=== PATIENT | female | born 1955 | race Caucasian/White ===

== ENCOUNTER 2017-01-25 15:01 | Emergency (ER) | payer MEDICAID ==
[~2017-01-25] VITALS: Ht 162.6 cm; Wt 83.5 kg
--- NOTE | 2017-01-25 15:01 | NUR ---
C/O COUGH WITH CONGESTION X 10 DAYS, ALSO C/O FEVER. NAD NOTED. PT AAO X4, VSS. NAD NOTED. PENDING MD MARTIN.
[2017-01-25] MEDS ORDERED: IBUPROFEN 400 MG TABLET ONE (15:27)
[2017-01-25] MEDS ORDERED: IBUPROFEN 400 MG TABLET PO ONE (15:30)
--- NOTE | 2017-01-25 15:30 | NUR ---
LAB AT BEDSIDE FOR EVAL.
[2017-01-25 15:34] LABS: BASOPHILS % (AUTO) 0.2 % (0.0-2.0); EOSINOPHILS # (AUTO) 0.1 /CMM (0.0-0.7); EOSINOPHILS % (AUTO) 0.8 % (0.0-6.0); HEMATOCRIT 34 % (33-45); HEMOGLOBIN 11.5 g/dL (11.5-14.8); LYMPHOCYTES # (AUTO) 1.2 /CMM (0.8-4.8); LYMPHOCYTES % (AUTO) 13.9 % (20.0-44.0); MEAN CORPUSCULAR HEMOGLOBIN 28 PG (26.0-33.0); MEAN CORPUSCULAR HGB CONC 33 g/dl (31.0-36.0); MEAN CORPUSCULAR VOLUME 83 fL (82-100); MONOCYTES # (AUTO) 0.8 /CMM (0.1-1.30); MONOCYTES % (AUTO) 9.9 % (2.0-12.0); NEUTROPHILS # (AUTO) 6.3 /CMM (1.8-8.9); NEUTROPHILS % (AUTO) 75.2 % (43.0-81.0); PLATELET COUNT (AUTO) 290 /CMM (150-450); RDW COEFFICIENT OF VARIATION 11.9 (11.5-15.0); RED BLOOD CELL COUNT(AUTO) 4.16 MIL/uL (4.0-5.2); WHITE BLOOD COUNT (AUTO) 8.4 K/uL (4.3-11.0)
[2017-01-25 15:48] LABS: CREATININE 0.9 mg/dL (0.6-1.3)
[2017-01-25 16:33] VITALS: BP 128/74
== END 2017-01-25 17:27 | disposition home or self-care (01) ==
LOC: ER 15:06
DX: J22 Unspecified acute lower respiratory infection (principal); I10 Essential (primary) hypertension; F17.200 Nicotine dependence, unspecified, uncomplicated
CPT/HCPCS: 36415; 71010; 80048; 85025; 93005; 99284; 99406; A4606; Z7610

== ENCOUNTER 2020-08-08 17:57 | Emergency (ER) | payer BC, MEDICAID ==
[~2020-08-08] VITALS: Ht 162.6 cm; Wt 89.4 kg
--- NOTE | 2020-08-08 18:10 | NUR ---
BIBS FROM HOME. C/O DIZZINESS, WEAKNESS, CHEST PAIN AND ABDOMINAL PAIN X 2 DAYS. A/O X4. STABLE ON ROOM AIR. AMBULATORY. PAIN SCALE OF 7/1O. VS STABLE.
--- NOTE | 2020-08-08 18:15 | NUR ---
URINE SPECIMEN SENT TO LAB
[2020-08-08] MEDS ORDERED: FAMOTIDINE/PF INJ 20 MG/2 ML VIAL IV ONE ×2 (18:41→19:00)
[2020-08-08 19:00] LABS: BILIRUBIN,URINE MODERATE (NEGATIVE); COLOR,URINE YELLOW (YELLOW); LEUKOCYTE ESTERASE ,URINE Negative (NEGATIVE); NITRITE, URINE Negative (NEGATIVE); PROTEIN,URINE Trace mg/dl (NEGATIVE); UGLUCOSE Negative (NEGATIVE); UROBILINOGEN,URINE 0.2 EU/dL (0.2)
[2020-08-08] MEDS ORDERED: IV NS 0.9% 1,000 ML BAG IV ONE (19:00)
[2020-08-08 19:02] LABS: BASOPHILS % (AUTO) 0.7 % (0.0-2.0); EOSINOPHILS % (AUTO) 0.3 % (0.0-6.0); HEMATOCRIT 40 % (33-45); HEMOGLOBIN 13.2 g/dL (11.5-14.8); LYMPHOCYTES # (AUTO) 1.7 /CMM (0.8-4.8); LYMPHOCYTES % (AUTO) 22.9 % (20.0-44.0); MEAN CORPUSCULAR HGB CONC 33 g/dl (31.0-36.0); MEAN CORPUSCULAR VOLUME 86 fL (82-100); MONOCYTES # (AUTO) 0.4 /CMM (0.1-1.30); MONOCYTES % (AUTO) 5.8 % (2.0-12.0); NEUTROPHILS # (AUTO) 5.2 /CMM (1.8-8.9); NEUTROPHILS % (AUTO) 70.3 % (43.0-81.0); PLATELET COUNT (AUTO) 258 /CMM (150-450); RED BLOOD CELL COUNT(AUTO) 4.67 MIL/uL (4.0-5.2); WHITE BLOOD COUNT (AUTO) 7.4 K/uL (4.3-11.0)
[2020-08-08 19:04] LABS: BACTERIA,URINE Rare /HPF (None Seen); RBC,URINE NONE SEEN /HPF (0-2); SQUAMOUS EPITHELIAL CELL,UR Few /HPF (None Seen); WBC,URINE NONE SEEN /HPF (0-3)
[2020-08-08 19:12] LABS: CALCIUM, SERUM 9.5 mg/dL (8.5-10.1); CARBON DIOXIDE 28 mmol/L (21-32); CHLORIDE 102 mmol/L (98-107); CREATININE 0.8 mg/dL (0.6-1.3); GLUCOSE 96 mg/dL (74-106); POTASSIUM 4.1 mmol/L (3.5-5.1); SODIUM SERUM 137 mmol/L (136-145); UREA NITROGEN, BLOOD 15 mg/dL (7-18)
[2020-08-08 19:18] LABS: ALANINE AMINOTRANSFERASE 19 U/L (12-78); ALBUMIN 3.4 g/dL (3.4-5.0); ALKALINE PHOSPHATASE 93 U/L (46-116); ASPARTATE AMINOTRANSFERASE 20 U/L (15-37); BILIRUBIN,DIRECT 0.1 mg/dL (0.0-0.2); BILIRUBIN,TOTAL 0.4 mg/dL (0.2-1.0); LIPASE 42 U/L (73-393); TOTAL PROTEIN, SERUM 7.6 g/dL (6.4-8.2)
[2020-08-08] MEDS ORDERED: IOHEXOL-300 100 ML VIAL IV ONE (19:30)
[2020-08-08] MEDS ORDERED: IV NS 0.9% 250 ML IV ONE (19:31)
[2020-08-08] MEDS ORDERED: CT SWABBABLE VALVE TRANS SET 1 EA INFUS.SET MC ONE (19:31)
--- NOTE | 2020-08-08 19:37 | NUR ---
PATIENT IS TAKEN TO CT VIA GURNEY.
--- NOTE | 2020-08-08 20:26 | NUR ---
DR. ESPITIA ON THE PHONE WITH DR. BRAYAN DIAZ
--- NOTE | 2020-08-08 20:26 | NUR ---
DR. ESPITIA SPEAKING WITH DR. SCHMIDT (GI TEST FIXTURE ASSEMBLER)
--- NOTE | 2020-08-08 20:34 | NUR ---
DR. ESPITIA SPEAKING WITH DR. ESPAÑA (SURGERY CLIN NURSE SPEC)
[2020-08-08] MEDS ORDERED: ONDANSETRON HCL/PF 4 MG/2 ML VIAL ONE (20:47)
[2020-08-08] MEDS ORDERED: MORPHINE SULFATE INJ 2 MG/ML DISP.SYRIN ONE (20:47)
--- NOTE | 2020-08-08 20:57 | NUR ---
ADMISSION PACKET PROVIDED TO ADMITTING DEPT
[2020-08-08] MEDS ORDERED: MORPHINE SULFATE INJ 2 MG/ML DISP.SYRIN IV ONE (21:00)
[2020-08-08] MEDS ORDERED: ONDANSETRON HCL/PF 4 MG/2 ML VIAL IV ONE (21:00)
--- NOTE | 2020-08-08 21:26 | NUR ---
SANCHEZ SUNSHINE SENT TO LAB.
--- NOTE | 2020-08-08 21:26 | NUR ---
PATIENT AMBULATED TO THE RESTROOM WITH A STEADY GAIT.
--- NOTE | 2020-08-08 22:03 | NUR ---
DR SALGUERO ON THE PHONE W/ DR CHATTERJEE
--- NOTE | 2020-08-08 22:08 | NUR ---
CALLED [facility] FOR [facility] BED
[2020-08-08] MEDS ORDERED: AMLO2.5T4 PO (22:12)
[2020-08-08] MEDS ORDERED: ASPI-1169 PO (22:12)
[2020-08-08] MEDS ORDERED: HYDR12.55 PO (22:12)
--- NOTE | 2020-08-08 23:18 | NUR ---
SPOKE WITH TRANSITION RN CHRIS AND PROVIDED CLINICAL INFORMATION FOR HIGHER LEVEL OF CARE TRANSFER
[2020-08-09] MEDS ORDERED: IV NS 0.9% 1,000 ML IV ONE (00:30)
--- NOTE | 2020-08-09 01:53 | NUR ---
SPOKE WITH OUTSIDE SALES ENGINEER CHRIS, PT WILL BE TRANSFERRED TO [facility] FOR HIGHER LEVEL OF CARE. ACCEPTED BY DR. ANN. PER CHRIS, BED AND TRANSPORTATION INFORMATION STILL PENDING
--- NOTE | 2020-08-09 01:54 | NUR ---
DR. BERG ON THE PHONE WITH DR. ANN
--- NOTE | 2020-08-09 02:05 | NUR ---
Patient does not wish to proceed with medical care recommended by Dr. Esparza. Patient given information related to possible complications, up to and including , which could occur as a result of leaving the hospital at this time. Patient verbalizes understanding of risks involved due to leaving against medical advice. Patient has signed AMA form.
--- NOTE | 2020-08-09 02:11 | NUR ---
IV removed. Catheter intact and site benign. Pressure and 4x4 applied to site. No bleeding noted.
--- NOTE | 2020-08-09 02:12 | NUR ---
Patient is picked up by daughter.
[2020-08-09 02:22] VITALS: BP 133/78
== END 2020-08-09 02:22 | disposition left against medical advice (07) ==
LOC: ER 18:01
DX: R10.13 Epigastric pain (principal); Z98.84 Bariatric surgery status; I10 Essential (primary) hypertension; Z79.82 Long term (current) use of aspirin; Z79.899 Other long term (current) drug therapy; K80.20 Calculus of gallbladder without cholecystitis without obstruction; K57.90 Diverticulosis of intestine, part unspecified, without perforation or abscess without bleeding; R16.0 Hepatomegaly, not elsewhere classified; Z20.822 Contact with and (suspected) exposure to COVID-19
CPT/HCPCS: 36415; 74177; 80048; 80076; 81001; 83690; 84484; 85025; 87081; 87086; 87426; 93005; 96361 ×2; 96374; 96375; 99285; C9803; J2270; J2405; J3490; J7030; J7050; Q9967